=== PATIENT | male | born 1970 | race Caucasian/White ===

== ENCOUNTER → 2017-03-14 | Outpatient (CLI) | payer OTHER ==
[~2017-03-14] MED LIST: CODACE30; DIAZ5 PO; DIPH50 PO; EPIN.3I IM; ESOM20; ESOM20 PO; FAMO40 PO; HYDACE5 PO; LOVA40; Lisinopril2.5 MG; MECL25 PO; METF500; NAPR550 PO; Norco 5-325 Ta1 EACH PO; OXYACE5T PO; PENVK500; PRED20 PO; Percocet 5-3251 EACH PO; RANI150; SERT100; SERTRALINE
== END ==
LOC: LAB 13:20
DX: E11.65 Type 2 diabetes mellitus with hyperglycemia (principal); E78.2 Mixed hyperlipidemia
CPT/HCPCS: 82043